=== PATIENT | male | born 1950 | race Caucasian/White ===

== ENCOUNTER 2022-07-20 10:03 | Outpatient (REF) | payer MEDICARE, SELFPAY | END 2022-07-20 10:04 | disposition home or self-care (01) | LOC: HO.BBR 10:03 | PROVIDERS: Visit Provider Internal Medicine | DX: Z13.89 Encounter for screening for other disorder (principal) ==

== ENCOUNTER 2023-09-27 10:55 | Outpatient (REF) | payer MEDICARE, SELFPAY | END 2023-09-27 10:56 | disposition home or self-care (01) | LOC: HO.BBR 10:55 | PROVIDERS: PCP Internal Medicine; Visit Provider Internal Medicine | DX: Z13.89 Encounter for screening for other disorder (principal) ==

== ENCOUNTER 2023-10-27 10:50 | Outpatient (REF) | payer MEDICARE, SELFPAY | END 2023-10-27 10:51 | disposition home or self-care (01) | LOC: HO.BBR 10:50 | PROVIDERS: PCP Internal Medicine; Visit Provider Internal Medicine | DX: Z13.89 Encounter for screening for other disorder (principal) ==